=== PATIENT | female | born 1985 | race Two or more races ===

== ENCOUNTER 2020-02-19 00:47 | Emergency (ER) | payer SELFPAY ==
--- NOTE | 2020-02-19 01:13 | ER Document Report ---
ED Medical Screen (RME) - General Chief Complaint: Foot Pain Stated Complaint: SWOLLEN FEET Time Seen by Provider: 02/19/20 01:11 Notes: HPI: Bilateral foot and ankle swelling for 1 month. 34-year-old female with bilateral foot and ankle swelling for 1 month. It is generally not swollen when she wakes up in the morning but by the end of the day she has swelling to both feet and ankles. 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 She also received a pacemaker. States she has had some chest pain shortness of breath issues since the pacemaker insertion 5 years ago. She had this done in [place] and is never followed back up with cardiology in the last 5 years PHYSICAL EXAMINATION: 2+ edema to the bilateral ankles and feet is noted. I have greeted and performed a rapid initial assessment of this patient. A comprehensive ED assessment and evaluation of the patient, analysis of test results and completion of medical decision making process will be conducted by an additional ED providers. Physical Exam - Vital signs Vitals: Temp Pulse Resp BP Pulse Ox 98.3 F 79 14 123/85 96 02/19/20 00:52 02/19/20 00:52 02/19/20 00:52 02/19/20 00:52 02/19/20 00:52 Course - Vital Signs Vital signs: Temp Pulse Resp BP Pulse Ox 98.3 F 79 14 123/85 96 02/19/20 00:52 02/19/20 00:52 02/19/20 00:52 02/19/20 00:52 02/19/20 00:52
[2020-02-19 02:16] LABS: ABSOLUTE BASOPHILS # (AUTO) 0.1 10^3/uL (0.0-0.2); ABSOLUTE LYMPHOCYTES (AUTO) 1.5 10^3/uL (0.5-4.7); ABSOLUTE MONOCYTES (AUTO) 0.6 10^3/uL (0.1-1.4); ABSOLUTE NEUT (AUTO) 5.4 10^3/uL (1.7-8.2); BASOPHILS % (AUTO) 0.8 % (0-2); EOSINOPHILS % (AUTO) 0.5 % (0-6); HEMATOCRIT 38.4 % (36.0-47.0); HEMOGLOBIN 12.9 g/dL (12.0-15.5); LYMPHOCYTES % (AUTO) 20.1 % (13-45); MEAN CORPUSCULAR HEMOGLOBIN 31.7 pg (27.0-33.4); MEAN CORPUSCULAR HGB CONC 33.7 g/dL (32.0-36.0); MEAN CORPUSCULAR VOLUME 94 fl (80-97); MONOCYTES % (AUTO) 7.3 % (3-13); PLATELET COUNT 200 10^3/uL (150-450); RED BLOOD COUNT 4.07 10^6/uL (3.72-5.28); RED CELL DISTRIBUTION WIDTH 13.3 % (11.5-14.0); SEGMENTED NEUTROPHILS % (AUTO) 71.3 % (42-78); TOTAL CELLS COUNTED % (AUTO) 100 %; WHITE BLOOD COUNT 7.5 10^3/uL (4.0-10.5)
[2020-02-19 02:18] LABS: APPEARANCE,URINE SLIGHTLY-CLOUDY; BILIRUBIN,URINE NEGATIVE (NEGATIVE); COLOR,URINE YELLOW; GLUCOSE, URINE NEGATIVE (NEGATIVE); KETONES,URINE NEGATIVE (NEGATIVE); LEUKOCYTE ESTERASE,URINE NEGATIVE (NEGATIVE); NITRITE,URINE NEGATIVE (NEGATIVE); PROTEIN,URINE NEGATIVE (NEGATIVE); URINE SPECIFIC GRAVITY 1.024
[2020-02-19 02:36] LABS: ALBUMIN 4.5 g/dL (3.5-5.0); ALKALINE PHOSPHATASE 119 U/L (38-126); ANION GAP 11 (5-19); ASPARTATE AMINO TRANSFERASE 29 U/L (14-36); BILIRUBIN,DIRECT 0.2 mg/dL (0.0-0.4); BLOOD UREA NITROGEN 14 mg/dL (7-20); CALCIUM 9.7 mg/dL (8.4-10.2); CARBON DIOXIDE 25 mmol/L (22-30); CHLORIDE 102 mmol/L (98-107); GLUCOSE 104 mg/dL (75-110); POTASSIUM 4.3 mmol/L (3.6-5.0); TOTAL PROTEIN 8.4 g/dL (6.3-8.2)
--- NOTE | 2020-02-19 02:41 | RADIOLOGY REPORT (SQ) ---
CLINICAL HISTORY: SOB COMPARISON: None. 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 Sternotomy and valve replacement was performed. Left pacemaker is present. Lungs are clear without consolidation, atelectasis, mass or edema. There is no pleural effusion. There is no pneumothorax. There are no acute osseous findings. IMPRESSION: Clear lungs.
[2020-02-19 02:48] LABS: TROPONIN I 0.014 ng/mL
--- NOTE | 2020-02-19 07:07 | ER Document Report ---
Entered by JOÃO SHANKS SCRIBE 02/19/20 0645 Acting as scribe for:RADHA SARAVIA MD ED General - General Chief Complaint: Pedal Edema Stated Complaint: SWOLLEN FEET Time Seen by Provider: 02/19/20 01:11 Information source: Patient Notes: This 34 year old female patient presents to the emergency department today with complaints of bilateral feet swelling the past month. Patient states it is mild in the mornings and increases throughout the day. Patient states she sits a lot since she is a student. Patient she had a valve replaced in 2016 and received a pacemaker. Patient states she has not followed up with a Chemist [employer] since and moved from [place]. Patient states she recently stopped taking a diuretic and denies history of DM, HLD, or use of blood thinners. - Related Data Allergies/Adverse Reactions: Penicillins Allergy (Verified 02/19/20 01:12) Home Medications: trilyptal 150mg. abilify Past Medical History - General Information source: Patient - Social History Smoking Status: Current Every Day Smoker Cigarette use (# per day): Yes Chew tobacco use (# tins/day): No Frequency of alcohol use: None Drug Abuse: None Lives with: Family Family History: Reviewed & Not Pertinent Patient has homicidal ideation: No - Past Medical History Cardiac Medical History: Denies: Hx Hypercholesterolemia Endocrine Medical History: Denies: Hx Diabetes Mellitus Type 1, Hx Diabetes Mellitus Type 2 Past Surgical History: Reports: Hx Pacemaker - 2015, Hx Valve Replacement - 2015 Review of Systems - Review of Systems Constitutional: No symptoms reported EENT: No symptoms reported Cardiovascular: No symptoms reported Respiratory: No symptoms reported Gastrointestinal: No symptoms reported Genitourinary: No symptoms reported Female Genitourinary: No symptoms reported Musculoskeletal: See HPI, Other - bilateral feet swelling Skin: No symptoms reported Hematologic/Lymphatic: No symptoms reported Neurological/Psychological: No symptoms reported -: Yes All other systems reviewed and negative Physical Exam - Vital signs Vitals: Temp Pulse Resp BP Pulse Ox 98.3 F 79 14 123/85 96 02/19/20 00:52 02/19/20 00:52 02/19/20 00:52 02/19/20 00:52 02/19/20 00:52 - General General appearance: Appears well, Alert - HEENT Head: Normocephalic, Atraumatic Eyes: Normal Pupils: PERRL - Respiratory Respiratory status: No respiratory distress Chest status: Nontender Breath sounds: Normal Chest palpation: Normal - Cardiovascular Rhythm: Regular Heart sounds: Normal auscultation, S1 appreciated, S2 appreciated - Abdominal Inspection: Obese Distension: No distension Bowel sounds: Normal Tenderness: Nontender - Extremities General upper extremity: Normal inspection, Normal ROM General lower extremity: Edema - bilateral feet, Normal color - No erythema, Normal ROM, Normal strength, Normal temperature. No: Tender - Neurological Neuro grossly intact: Yes Cognition: Normal Orientation: AAOx4 [place] Coma Scale Eye Opening: Spontaneous [place] Coma Scale Verbal: Oriented [place] Coma Scale Motor: Obeys Commands [place] Coma Scale Total: 15 Speech: Normal Motor strength normal: LUE, RUE, LLE, RLE Sensory: Normal - Psychological Associated symptoms: Normal affect, Normal mood - Skin Skin Temperature: Warm Skin Moisture: Dry Skin Color: Normal Course - Re-evaluation Re-evalutation: 02/19/20 06:57 resting comfortable. leg edema due to not taking diuretic medication. - Vital Signs Vital signs: Temp Pulse Resp BP Pulse Ox 98.3 F 79 14 123/85 96 02/19/20 01:11 02/19/20 00:52 02/19/20 00:52 02/19/20 00:52 02/19/20 00:52 02/19/20 06:59 stable - Laboratory Result Diagrams: 02/19/20 01:55 02/19/20 01:55 Laboratory results interpreted by me: 02/19/20 02/19/20 02/19/20 01:55 01:55 01:55 NT-Pro-B Natriuret Pep 933 H Total Protein 8.4 H Urine Urobilinogen 2.0 H 02/19/20 07:00 elevated BNP consistent with CHF - Diagnostic Test Radiology reviewed: Image reviewed, Reports reviewed Radiology results interpreted by me: 02/19/20 07:00 Chest X-Ray 02/19/20 01:12 IMPRESSION: Clear lungs. Chest xray without signs of overt failure. Noted pacemeker/prior valve surgery. - EKG Interpretation by Me Additional EKG results interpreted by me: 02/19/20 07:02 12 lead ekg. atrial paced rythym, incomplete RBBB, normal axis. SD interval (Atrial paced rythym), normal interval for QRS, and QT; T wave inversion in septal/anterior chest leads. No acute STEmi. Discharge - Discharge Clinical Impression: Peripheral edema Condition: Stable Disposition: HOME, SELF-CARE Additional Instructions: Edema, Peripheral You have swelling in your legs. This is called peripheral edema. It can be caused by "leaky capillaries," inflammation, disease of the leg veins, or excess salt and water in your body. Edema may be a sign of heart, kidney, or liver disease. A medical evaluation can determine if there is a serious underlying cause for your edema. Avoid prolonged standing. If you must sit for a long time, occasionally get up and walk around or elevate your legs. Support stockings can be helpful in limiting swelling. Often diuretic or water pills are used to remove excess salt and water from your body. Call the doctor or return if you develop increased swelling, pain, or redness, shortness of breath, chest pain, or any other significant change. Prescriptions: Furosemide [Lasix 20 mg Tablet] 20 mg PO QAM PRN #30 tablet PRN Reason: swelling in fee and ankles Potassium Chloride 20 meq PO DAILY #30 tablet.er I personally performed the services described in the documentation, reviewed and edited the documentation which was dictated to the scribe in my presence, and it accurately records my words and actions.
[2020-02-19 07:36] VITALS: BP 110/69
--- NOTE | 2020-02-19 07:43 | EKG REPORT ---
SEVERITY:- ABNORMAL ECG - SINUS RHYTHM vs ATRIAL PACECD RHYTHM INCOMPLETE RIGHT BUNDLE BRANCH BLOCK : Confirmed by: Candice Stapleton 19-Feb-2020 07:42:09
== END 2020-02-19 07:40 | disposition home or self-care (01) ==
LOC: ER 00:47
DX: R60.0 Localized edema (principal); I45.10 Unspecified right bundle-branch block; F17.210 Nicotine dependence, cigarettes, uncomplicated; Z79.899 Other long term (current) drug therapy; Z95.0 Presence of cardiac pacemaker; Z95.2 Presence of prosthetic heart valve; Z88.0 Allergy status to penicillin
CPT/HCPCS: 36415; 71045; 80053; 81001; 83880; 84484; 85025; 93005; 93010; 99285

== ENCOUNTER 2020-03-28 09:25 | Emergency (ER) | payer SELFPAY ==
--- NOTE | 2020-03-28 10:36 | ER Document Report ---
ED Medical Screen (RME) - General Stated Complaint: SWOLLEN THROAT Time Seen by Provider: 03/28/20 10:21 - HPI Notes: 03/28/20 10:31 35-year-old female presents to the emergency room for left throat pain that is becoming progressively worse over the last week, states she has difficulty swallowing. Patient has a history of mono when she states this does feel similar. Decreased eating and drinking. Patient states she is a smoker. Patient states she is not having any body aches, headache, congestion, cough, shortness of breath, cp. No rashes. Has not tried any [id number] medications. lmp 02/26/2020. I have greeted and performed a rapid initial assessment of this patient. A comprehensive ED assessment and evaluation of the patient, analysis of test results and completion of the medical decision making process will be conducted by additional ED providers. PHYSICAL EXAMINATION: GENERAL: Well-appearing, well-nourished and in no acute distress. HEAD: Atraumatic, normocephalic. EYES: Pupils equal round extraocular movements intact, conjunctiva are normal. ENT: Left tonsil +3 with erythema, no exudate, Right tonsil +2. NECK: Normal range of motion CV: s1, s2 regular LUNGS: No respiratory distress The patient was evaluated during a global COVID-19 pandemic and that diagnosis was suspected/considered upon their initial presentation. Their evaluation, treatment and testing was consistent with current guidelines for patients who present with complaints or symptoms and may be related to COVID-19. 03/28/20 10:32 - Related Data Allergies/Adverse Reactions: Penicillins Allergy (Verified 02/19/20 01:12) Past Medical History - Past Medical History Cardiac Medical History: Denies: Hx Hypercholesterolemia Endocrine Medical History: Denies: Hx Diabetes Mellitus Type 1, Hx Diabetes Mellitus Type 2 Past Surgical History: Reports: Hx Pacemaker - 2016, Hx Valve Replacement - 2016 Physical Exam - Vital signs Vitals: Temp Pulse Resp BP Pulse Ox 98.9 F 95 16 120/76 98 03/28/20 09:29 03/28/20 09:29 03/28/20 09:29 03/28/20 09:29 03/28/20 09:29 Course - Vital Signs Vital signs: Temp Pulse Resp BP Pulse Ox 98.9 F 95 16 120/76 98 03/28/20 09:29 03/28/20 09:29 03/28/20 09:29 03/28/20 09:29 03/28/20 09:29
[2020-03-28 11:27] LABS: ABSOLUTE MONOCYTES (AUTO) 0.7 10^3/uL (0.1-1.4); ABSOLUTE NEUT (AUTO) 7.6 10^3/uL (1.7-8.2); BASOPHILS % (AUTO) 0.4 % (0-2); EOSINOPHILS % (AUTO) 0.2 % (0-6); HEMATOCRIT 38.8 % (36.0-47.0); HEMOGLOBIN 13.5 g/dL (12.0-15.5); LYMPHOCYTES % (AUTO) 11.1 % (13-45); MEAN CORPUSCULAR HEMOGLOBIN 31.8 pg (27.0-33.4); MEAN CORPUSCULAR HGB CONC 34.7 g/dL (32.0-36.0); MEAN CORPUSCULAR VOLUME 92 fl (80-97); MONOCYTES % (AUTO) 7.2 % (3-13); PLATELET COUNT 175 10^3/uL (150-450); RED BLOOD COUNT 4.23 10^6/uL (3.72-5.28); RED CELL DISTRIBUTION WIDTH 12.7 % (11.5-14.0); SEGMENTED NEUTROPHILS % (AUTO) 81.1 % (42-78); TOTAL CELLS COUNTED % (AUTO) 100 %; WHITE BLOOD COUNT 9.4 10^3/uL (4.0-10.5)
[2020-03-28 11:50] LABS: ANION GAP 10 (5-19); BLOOD UREA NITROGEN 12 mg/dL (7-20); CALCIUM 9.5 mg/dL (8.4-10.2); CARBON DIOXIDE 23 mmol/L (22-30); CHLORIDE 104 mmol/L (98-107); GLUCOSE 112 mg/dL (75-110); POTASSIUM 4.6 mmol/L (3.6-5.0)
[2020-03-28] MEDS ORDERED: DEXAMETHASONE 4 MG TABLET PO ONE (12:37)
--- NOTE | 2020-03-28 12:41 | ER Document Report ---
ED ENT - General Stated Complaint: SWOLLEN THROAT Time Seen by Provider: 03/28/20 10:21 Notes: CHIEF COMPLAINT: Sore throat HPI: 35-year-old female presenting with sore throat on the left side over the last 3 to 4 days without definitive fever. Has history of strep throat and mononucleosis believes it is one of the other. Is able to swallow her secretions and speak normally but has pain when swallowing. Denies other complaints at this time ROS: See HPI - all other systems were reviewed and are otherwise negative Constitutional: no fever Eyes: no drainage, no blurred vision ENT: no runny nose, + sore throat Cardiovascular: no chest pain Resp: no SOB, no cough GI: no vomiting, no diarrhea, no abdominal pain : no dysuria Integumentary: no rash Allergy: no hives Musculoskeletal: no extremity pain or swelling Neurological: no numbness/tingling, no weakness MEDICATIONS: I agree with the patient medications as charted by the RN. ALLERGIES: I agree with the allergies as charted by the RN. PAST MEDICAL HISTORY/PAST SURGICAL HISTORY: Reviewed and agree as charted by RN. SOCIAL HISTORY: Reviewed and agree as charted by RN. FAMILY HISTORY: No significant familial comorbid conditions directly related to patient complaint EXAM: Reviewed vital signs as charted by RN. CONSTITUTIONAL: Alert and oriented and responds appropriately to questions. W ell-appearing; well-nourished HEAD: Normocephalic; atraumatic EYES: PERRL; Conjunctivae clear, sclerae non-icteric ENT: normal nose; no rhinorrhea; moist mucous membranes; pharynx without lesions noted, no uvula edema or deviation, left tonsil is mildly hypertrophied relative to the right tonsil but there is absolutely no soft palate swelling noted, phonation normal NECK: Supple without meningismus; non-tender; positive left cervical lymphadenopathy, no masses CARD: RRR; no murmurs, no clicks, no rubs, no gallops; symmetric distal pulses RESP: Normal chest excursion without splinting or tachypnea; breath sounds clear and equal bilaterally; no wheezes, no rhonchi, no rales, pulse oximetry 98% on room air not hypoxic ABD/GI: Normal bowel sounds; non-distended; soft, non-tender, no rebound, no guarding; no palpable organomegaly or masses. BACK: The back appears normal and is non-tender to palpation, there is no CVA tenderness EXT: Normal ROM in all joints; no cyanosis, no effusions, no edema SKIN: Normal color for age and race; warm; dry; good turgor; no acute lesions noted NEURO: Moves all extremities equally; Motor and sensory function intact PSYCH: The patient's mood and manner are appropriate. Grooming and personal hygiene are appropriate. MDM: 35-year-old female with left tonsillitis. Lab work does not show evidence of strep throat or mononucleosis. There does not appear to be any soft palate swelling suggesting an abscess at this time I spoke with the patient at length about this. We will place her on Zithromax for tonsillitis given her penicillin allergy. We will give her a dose of Decadron in the emergency department. The patient was evaluated during the global COVID-19 pandemic and that diagnosis was suspected/considered upon their initial presentation. Their evaluation, treatment and testing was consistent with current guidelines for patients who pr esent with complaints or symptoms that may be related to COVID-19 - Related Data Allergies/Adverse Reactions: Penicillins Allergy (Verified 02/19/20 01:12) Past Medical History - Social History Smoking Status: Current Every Day Smoker Family History: Reviewed & Not Pertinent - Past Medical History Cardiac Medical History: Denies: Hx Hypercholesterolemia Endocrine Medical History: Denies: Hx Diabetes Mellitus Type 1, Hx Diabetes Mellitus Type 2 Past Surgical History: Reports: Hx Pacemaker - 2015, Hx Valve Replacement - 2015 Physical Exam - Vital signs Vitals: Temp Pulse Resp BP Pulse Ox 98.9 F 95 16 120/76 98 03/28/20 09:29 03/28/20 09:29 03/28/20 09:29 03/28/20 09:29 03/28/20 09:29 Course - Vital Signs Vital signs: Temp Pulse Resp BP Pulse Ox 98.9 F 95 16 120/76 98 03/28/20 09:29 03/28/20 09:29 03/28/20 09:29 03/28/20 09:29 03/28/20 09:29 - Laboratory Results Result Diagrams: 03/28/20 11:15 03/28/20 11:15 Laboratory Results Interpreted: 03/28/20 03/28/20 11:15 11:15 Lymph % (Auto) 11.1 L Seg Neutrophils % 81.1 H Sodium 136.5 L Glucose 112 H Critical Laboratory Results Reviewed: No Critical Results - Radiology Results Critical Radiology Results Reviewed: No Critical Results Discharge - Discharge Clinical Impression: Acute infective tonsillitis Qualifiers: Pharyngitis/tonsillitis etiology: unspecified etiology Qualified Code(s): J03.90 - Acute tonsillitis, unspecified Condition: Stable Disposition: HOME, SELF-CARE Additional Instructions: 1. medicines as prescribed 2. take Motrin/Tylenol consistently for pain and fever 3. hydrate well at home with fluids/juices 4. recheck with your PCP for further evaluation and treatment, call for appt. 5. return to the ED for any difficulty swallowing or worsening condition 6. warm salt water gargles for throat discomfort 3 times daily Prescriptions: Azithromycin [Zithromax 250 mg Tablet] 250 mg PO ASDIR PRN #6 tablet PRN Reason:
[2020-03-28 13:15] VITALS: BP 105/71
== END 2020-03-28 13:14 | disposition home or self-care (01) ==
LOC: ER 09:25
DX: J03.90 Acute tonsillitis, unspecified (principal); R22.1 Localized swelling, mass and lump, neck; F17.200 Nicotine dependence, unspecified, uncomplicated; Z88.0 Allergy status to penicillin; Z20.828 Contact with and (suspected) exposure to other viral communicable diseases
CPT/HCPCS: 99283; 36415; 87070; 87880; 85025; 87077; 86308; 80048; J8540